=== PATIENT | male | born 1960 | race Caucasian/White ===

== ENCOUNTER 2017-10-05 15:47 | Emergency (ER) | payer MEDICARE | END 2017-10-05 17:53 | disposition home or self-care (01) | LOC: D.ER 15:47 | DX: L03.114 Cellulitis of left upper limb (principal) ==

== ENCOUNTER 2018-09-06 13:23 | Emergency (ER) | payer MEDICARE ==
[~2018-09-06] VITALS: Ht 175.3 cm; Wt 81.8 kg
[2018-09-06 14:14] VITALS: Ht 175.3 cm; Wt 81.8 kg
[2018-09-06 16:18] LABS: UDS - AMPHET NEGATIVE QUAL (NEGATIVE); UDS - BARB NEGATIVE QUAL (NEGATIVE); UDS - BENZO NEGATIVE QUAL (NEGATIVE); UDS - COCAINE NEGATIVE QUAL (NEGATIVE); UDS - OPIATE NEGATIVE QUAL (NEGATIVE); UDS - PCP NEGATIVE QUAL (NEGATIVE); UDS - THC NEGATIVE QUAL (NEGATIVE)
[2018-09-06 16:36] LABS: APPEARANCE CLEAR (CLEAR); BILIRUBIN NEGATIVE (NEGATIVE); COLOR YELLOW (YELLOW); GLUCOSE NEGATIVE (NEGATIVE); KETONE NEGATIVE (NEGATIVE); NITRITE NEGATIVE (NEGATIVE); PROTEIN NEGATIVE (NEGATIVE); RED CELLS - URINE NONE SEEN /hpf (0-5); SPECIFIC GRAVITY 1.015 (1.005-1.020); UROBILINOGEN NORMAL (NORMAL); WHITE CELLS - URINE NSEEN /hpf (0-5)
[2018-09-06 16:37] LABS: EPITHELIAL CELLS RARE /hpf (0-5)
[2018-09-06] MEDS ORDERED: VOLTAREN75 MG PO (18:28)
[2018-09-06 18:44] LABS: BASOPHILS 0.8 % (0-2); EOSINOPHILS 2.2 % (0-7); HEMOGLOBIN 17.3 g/dL (13.5-17.5); IMMATURE GRANULOCYTES 0.3 % (0-5); LYMPHOCYTES 18.1 % (15-50); MCH 30.8 pg (26.0-34.0); MCHC 35.3 g/dL (31.0-37.0); MCV 87.3 fL (80.0-100.0); MEAN PLATELET VOLUME 10.2 fL (7.4-10.4); NEUTROPHILS 69.6 % (40-80); PLATELET COUNT 230 10x3/uL (130-400); RBC 5.61 10x6/uL (4.20-6.10); RDW 16.3 % (11.5-14.5); WBC 11.6 10x3/uL (4.8-10.8)
[2018-09-06 18:58] LABS: ALBUMIN 3.3 g/dL (3.4-5.0); ALKALINE PHOSPHATASE 80 U/L (46-116); ALT (SGPT) 17 U/L (10-68); BILIRUBIN - TOTAL 0.38 mg/dL (0.2-1.3); CALC OSMOLALITY 277 mosm/kg (275-300); CARBON DIOXIDE 25.3 mmol/L (21.0-32.0); CHLORIDE - SERUM 107 mmol/L (98-107); GLUCOSE 100 mg/dL (74-106); POTASSIUM - SERUM 3.9 mmol/L (3.5-5.1); PROTEIN - SERUM 7.4 g/dL (6.4-8.2); SODIUM 140 mmol/L (136-145); UREA NITROGEN 9 mg/dL (7-18); eGFR NON AFRICAN AMERICAN 81 mL/min (90-120)
[2018-09-06 19:01] LABS: TROPONIN-I < 0.017 ng/mL (0.000-0.060)
[2018-09-06 20:34] VITALS: BP 130/85
== END 2018-09-06 20:36 | disposition home or self-care (01) ==
LOC: D.ER 13:23
PROVIDERS: Family Medicine
DX: R10.9 Unspecified abdominal pain (principal); M79.18 Myalgia, other site

== ENCOUNTER → 2019-11-05 10:24 | Outpatient (CLI) | payer OTHER, MEDICAID ==
[2018-09-06 14:14] VITALS: BMI 26.6
[~2019-11-05 10:24] MED LIST: VOLTAREN75 MG PO
== END | disposition home or self-care (01) ==
LOC: D.HCCECHO 10:24
PROVIDERS: ATTEND Internal Medicine Interventional Cardiology
DX: R01.1 Cardiac murmur, unspecified (principal); R09.89 Other specified symptoms and signs involving the circulatory and respiratory systems